=== PATIENT | female | born 1970 | race Caucasian/White ===

== ENCOUNTER → 2016-06-06 | Outpatient (CLI) | payer OTHER ==
--- NOTE | 2016-06-06 17:02 | MR ---
EXAMINATION TYPE: MR lumbar spine wo con DATE OF EXAM: 06/06/2016 4:38 PM COMPARISON: NONE HISTORY: Pain and numbness TECHNIQUE: T1 and T2 axial and sagittal images of the lumbar spine are submitted. FINDINGS: There is no abnormal signal seen within the visualized spinal cord or paraspinal soft tissu es. Subcentimeter area of signal within the right kidney likely related to simple cyst. At L1-2 there is no disc herniation or canal stenosis. No foraminal encroachment. At L2-3 there is no disc herniation or canal stenosis. No foraminal encroachment. At L3-4 there is mild disc desiccation. There is no disc herniation or canal stenosis. No foraminal e ncroachment. At L4-5 there is degenerative disc disease with broad-based central disc protrusion and mild effaceme nt of thecal sac with mild canal stenosis. Facet arthropathy and ligamentum flavum hypertrophy are se en with mild bilateral foraminal encroachment. Small annular tear. At L5-S1 there is no disc herniation or canal stenosis. Mild facet arthropathy. No foraminal encroach ment. IMPRESSION: 1. At L4-L5 there is an annular tear and broad-based central disc protrusion with mild effacement of thecal sac, mild canal stenosis and mild bilateral foraminal encroachment. 2. Facet arthropathy L5-S1.
== END | disposition home or self-care (01) ==
LOC: RADMRIMAIN 15:41
PROVIDERS: ATTEND Family Medicine
DX: M48.06 Spinal stenosis, lumbar region (principal); M51.26 Other intervertebral disc displacement, lumbar region; M46.86 Other specified inflammatory spondylopathies, lumbar region
CPT/HCPCS: 72148

== ENCOUNTER 2020-02-02 08:39 | Emergency (ER) | payer BC, OTHER ==
[2020-02-02 08:50] VITALS: RESP 18; TEMP 98.6
--- NOTE | 2020-02-02 09:07 | ED ---
General Adult HPI - General Chief complaint: Abdominal Pain Stated complaint: Abd pain Time Seen by Provider: 02/02/20 08:53 Source: patient Mode of arrival: ambulatory Limitations: no limitations - History of Present Illness Initial comments: Dictation was produced using [employer] dictation software. please excuse any grammatical, word or spelling errors. This patient was cared for during a federal and state declared state of emergency secondary to Covid 19 Chief Complaint: 49-year-old female presents with abdominal pain History of Present Illness: Is 49-year-old female she presents today with abdominal pain over the last year she's been having weight loss. She was scheduled to have a outpatient CT ordered by her primary care physician however she did not get it. Over the last 3 days she's been complaining of abdominal pain nausea and vomiting. She states that her vomiting only occurred on the first day of her symptoms. She states at that time as nonbilious not bloody. She complains of pain to the right abdomen in the upper and lower quadrants. It's worse with palpation. Patient states her abdominal pain is triggered by eating. She states the pain is instantaneous. She will go this morning had a bowel movement and reports that it was pale in color. She weighed 30 pounds heavier. She's been expressing unintentional weight loss since then. Denies any constitutional symptoms. The ROS documented in this emergency department record has been reviewed and confirmed by me. Those systems with pertinent positive or negative responses have been documented in the HPI. All other systems are other negative and/or noncontributory. PHYSICAL EXAM: General Impression: Alert and oriented x3, not in acute distress HEENT: Normocephalic atraumatic, extra-ocular movements intact, pupils equal and reactive to light bilaterally, mucous membranes moist. Cardiovascular: Heart regular rate and rhythm Chest: Able to complete full sentences, no retractions, no tachypnea Abdomen: abdomen soft, tenderness to the right abdomen worse in the upper versus lower quadrant, there is a positive Salmon's and there is pain at McBurney's point. Non-distended, no organomegaly, normal bowel sounds with auscultation the abdomen Musculoskeletal: Pulses present and equal in all extremities, no peripheral edema Motor: no focal deficits noted Neurological: CN II-XII grossly intact, no focal motor or sensory deficits noted Skin: Intact with no visualized rashes Psych: Normal affect and mood ED course: 49-year-old presents today with 3 days of abdominal pain. Vital signs upon arrival are within acceptable limits. Patient refusing analgesics. Laboratory evaluation obtained. CBC unremarkable. Cardiac panel is negative. Metabolic panel shows no acute processes. His lipase is slightly elevated at 362. Analysis is a dirty catch no concerns of UTI. Computed tomography scan of the abdomen and pelvis obtained showing no acute processes. Patient reevaluated bedside she is appears to be in stable medical issue. Patient was notified of the results of her labs and her CT imaging. Patient requests to be discharged. This point there is no life-threatening processes identified. Patient given outpatient referral to gastroenterology. She is given prescriptions for Protonix. There is obvious source of patient's symptoms. Patient does not have any high-risk features. - Related Data Home Medications Medication Instructions Recorded Confirmed Albuterol Sulfate [Proair Hfa] 2 puff INHALATION RT-Q4H PRN 12/09/13 02/02/20 Fluticasone/Salmeterol [Advair 1 puff INHALATION RT-HS 02/02/20 02/02/20 500-50 Diskus] Montelukast [Singulair] 10 mg PO HS 02/02/20 02/02/20 Previous Rx's Medication Instructions Recorded Pantoprazole [Protonix] 40 mg PO DAILY 20 Days #20 02/02/20 tablet. Allergies Allergy/AdvReac Type Severity Reaction Status Date / Time Milk Containing Products AdvReac Nausea & Verified 02/02/20 09:53 [Dairy] Vomiting & Diarrhea wheat AdvReac Nausea & Verified 02/02/20 09:53 Vomiting & Diarrhea Review of Systems ROS Statement: Those systems with pertinent positive or pertinent negative responses have been documented in the HPI. ROS Other: All systems not noted in ROS Statement are negative. Past Medical History Past Medical History: Asthma History of Any Multi-Drug Resistant Organisms: None Reported Past Surgical History: Heart Catheterization Past Psychological History: No Psychological Hx Reported Smoking Status: Current every day smoker Past Alcohol Use History: None Reported Past Drug Use History: None Reported General Exam Limitations: no limitations Course Vital Signs 02/02/20 08:47 Temperature 98.6 F Pulse Rate 55 L Respiratory 18 Rate Blood Pressure 130/76 O2 Sat by Pulse 97 Oximetry Medical Decision Making - Lab Data Result diagrams: 02/02/20 09:13 02/02/20 09:13 Lab Results 02/02/20 02/02/20 02/02/20 Range/Units 09:13 09:13 09:13 WBC 8.2 (3.8-10.6) k/uL RBC 4.54 (3.80-5.40) m/uL Hgb 14.0 (11.4-16.0) gm/dL Hct 41.7 (34.0-46.0) % MCV 91.8 (80.0-100.0) fL MCH 30.8 (25.0-35.0) pg MCHC 33.6 (31.0-37.0) g/dL RDW 12.1 (11.5-15.5) % Plt Count 254 (150-450) k/uL MPV 6.8 Neutrophils % 61 % Lymphocytes % 28 % Monocytes % 7 % Eosinophils % 2 % Basophils % 1 % Neutrophils # 5.0 (1.3-7.7) k/uL Lymphocytes # 2.3 (1.0-4.8) k/uL Monocytes # 0.5 (0-1.0) k/uL Eosinophils # 0.2 (0-0.7) k/uL Basophils # 0.1 (0-0.2) k/uL PT 10.1 (9.0-12.0) sec INR 1.0 (<1.2) APTT 26.6 (22.0-30.0) sec Sodium (137-145) mmol/L Potassium (3.5-5.1) mmol/L Chloride (98-107) mmol/L Carbon Dioxide (22-30) mmol/L Anion Gap mmol/L BUN (7-17) mg/dL Creatinine (0.52-1.04) mg/dL Est GFR (CKD-EPI)AfAm (>60 ml/min/1.73 sqM) Est GFR (CKD-EPI)NonAf (>60 ml/min/1.73 sqM) Glucose (74-99) mg/dL Calcium (8.4-10.2) mg/dL Total Bilirubin (0.2-1.3) mg/dL Conjugated Bilirubin (0.0-0.3) mg/dL Unconjugated Bilirubin (0.0-1.1) mg/dL Delta Bilirubin (0.0-0.2) mg/dL AST (14-36) U/L ALT (4-34) U/L Alkaline Phosphatase (38-126) U/L Total Protein (6.3-8.2) g/dL Albumin (3.5-5.0) g/dL Lipase (23-300) U/L Urine Color Yellow Urine Appearance Cloudy H (Clear) Urine pH 5.0 (5.0-8.0) Ur Specific [place] 1.027 (1.001-1.035) Urine Protein 1+ H (Negative) Urine Glucose (UA) Negative (Negative) Urine Ketones Trace H (Negative) Urine Blood Trace H (Negative) Urine Nitrite Negative (Negative) Urine Bilirubin Negative (Negative) Urine Urobilinogen <2.0 (<2.0) mg/dL Ur Leukocyte Esterase Moderate H (Negative) Urine RBC 9 H (0-5) /hpf Urine WBC 7 H (0-5) /hpf Ur Squamous Epith Cells 14 H (0-4) /hpf Urine Mucus Occasional H (None) /hpf 02/02/20 Range/Units 09:13 WBC (3.8-10.6) k/uL RBC (3.80-5.40) m/uL Hgb (11.4-16.0) gm/dL Hct (34.0-46.0) % MCV (80.0-100.0) fL MCH (25.0-35.0) pg MCHC (31.0-37.0) g/dL RDW (11.5-15.5) % Plt Count (150-450) k/uL MPV Neutrophils % % Lymphocytes % % Monocytes % % Eosinophils % % Basophils % % Neutrophils # (1.3-7.7) k/uL Lymphocytes # (1.0-4.8) k/uL Monocytes # (0-1.0) k/uL Eosinophils # (0-0.7) k/uL Basophils # (0-0.2) k/uL PT (9.0-12.0) sec INR (<1.2) APTT (22.0-30.0) sec Sodium 135 L (137-145) mmol/L Potassium 4.5 (3.5-5.1) mmol/L Chloride 102 (98-107) mmol/L Carbon Dioxide 26 (22-30) mmol/L Anion Gap 7 mmol/L BUN 15 (7-17) mg/dL Creatinine 0.58 (0.52-1.04) mg/dL Est GFR (CKD-EPI)AfAm >90 (>60 ml/min/1.73 sqM) Est GFR (CKD-EPI)NonAf >90 (>60 ml/min/1.73 sqM) Glucose 118 H (74-99) mg/dL Calcium 9.4 (8.4-10.2) mg/dL Total Bilirubin 0.7 (0.2-1.3) mg/dL Conjugated Bilirubin 0.0 (0.0-0.3) mg/dL Unconjugated Bilirubin 0.5 (0.0-1.1) mg/dL Delta Bilirubin 0.2 (0.0-0.2) mg/dL AST 31 (14-36) U/L ALT 20 (4-34) U/L Alkaline Phosphatase 49 (38-126) U/L Total Protein 7.1 (6.3-8.2) g/dL Albumin 4.3 (3.5-5.0) g/dL Lipase 362 H (23-300) U/L Urine Color Urine Appearance (Clear) Urine pH (5.0-8.0) Ur Specific [place] (1.001-1.035) Urine Protein (Negative) Urine Glucose (UA) (Negative) Urine Ketones (Negative) Urine Blood (Negative) Urine Nitrite (Negative) Urine Bilirubin (Negative) Urine Urobilinogen (<2.0) mg/dL Ur Leukocyte Esterase (Negative) Urine RBC (0-5) /hpf Urine WBC (0-5) /hpf Ur Squamous Epith Cells (0-4) /hpf Urine Mucus (None) /hpf Disposition Clinical Impression: Abdominal pain Disposition: HOME SELF-CARE Condition: Good Instructions (If sedation given, give patient instructions): Abdominal Pain (ED) Additional Instructions: Follow-up with GI doctor as referred. Please seek medical attention if he started to develop worsening symptoms especially if it involves fever, worsening pain or intractable nausea vomiting or diarrhea. Prescriptions: Pantoprazole [Protonix] 40 mg PO DAILY 20 Days #20 tablet.dr Is patient prescribed a controlled substance at d/c from ED?: No Referrals: Henry Ferreira MD [STAFF PHYSICIAN] - 1-2 days Time of Disposition: 11:39
[2020-02-02 09:27] LABS: Basophils # (A) 0.1 k/uL (0-0.2); Basophils % (A) 1 %; Eosinophils # (A) 0.2 k/uL (0-0.7); Eosinophils % (A) 2 %; HCT 41.7 % (34.0-46.0); Lymphocytes # (A) 2.3 k/uL (1.0-4.8); Lymphocytes % (A) 28 %; MCH 30.8 pg (25.0-35.0); MCHC 33.6 g/dL (31.0-37.0); MCV 91.8 fL (80.0-100.0); Mean Platelet Volume 6.8; Monocytes # (A) 0.5 k/uL (0-1.0); Monocytes % (A) 7 %; Neutrophils % (A) 61 %; Platelet Count 254 k/uL (150-450); RBC 4.54 m/uL (3.80-5.40); RDW 12.1 % (11.5-15.5); WBC 8.2 k/uL (3.8-10.6)
[2020-02-02 09:39] LABS: Partial Thromboplastin Time 26.6 sec (22.0-30.0); Prothrombin Time 10.1 sec (9.0-12.0)
[2020-02-02 09:40] LABS: ALT 20 U/L (4-34); African American GFR (CKD) >90 (>60 ml/min/1.73 sqM); Albumin 4.3 g/dL (3.5-5.0); Anion Gap 7 mmol/L; Bilirubin, Delta 0.2 mg/dL (0.0-0.2); Bilirubin,Unconjugated 0.5 mg/dL (0.0-1.1); Blood Urea Nitrogen 15 mg/dL (7-17); Calcium 9.4 mg/dL (8.4-10.2); Carbon Dioxide 26 mmol/L (22-30); Chloride 102 mmol/L (98-107); Glucose 118 mg/dL (74-99); Lipase 362 U/L (23-300); Non-African American GFR(CKD) >90 (>60 ml/min/1.73 sqM); Sodium 135 mmol/L (137-145); Total Bilirubin 0.7 mg/dL (0.2-1.3); Total Protein 7.1 g/dL (6.3-8.2)
[2020-02-02 09:43] LABS: Appearance,Urine Cloudy (Clear); Bilirubin,Urine Negative (Negative); Blood,Urine Trace (Negative); Color,Urine Yellow; Glucose,Urine (UA) Negative (Negative); Ketones,Urine Trace (Negative); Leukocyte Esterase,Urine Moderate (Negative); Mucus,Urine Occasional /hpf; Nitrite,Urine Negative (Negative); Protein,Urine 1+ (Negative); RBC,Urine 9 /hpf (0-5); Specific Gravity,Urine 1.027 (1.001-1.035); Squamous Epithelial Cell,Urine 14 /hpf (0-4); Urobilinogen,Urine <2.0 mg/dL (<2.0); WBC,Urine 7 /hpf (0-5)
[2020-02-02 10:13] LABS: AST 31 U/L (14-36); Alkaline Phosphatase 49 U/L (38-126); Potassium 4.5 mmol/L (3.5-5.1)
--- NOTE | 2020-02-02 10:25 | CT ---
EXAMINATION TYPE: CT abdomen pelvis w con DATE OF EXAM: 02/02/2020 COMPARISON: HISTORY: Abd pain CT DLP: 449.4 mGycm CONTRAST: CT scan of the abdomen and pelvis is performed without Oral Contrast and with IV Contrast, patient in jected with 100 mL of Isovue 300. FINDINGS: LUNG BASES-: No visible nodule. No infiltrate. LIVER/GB: No calcified gallstones. No space occupying hepatic lesion. Biliary tree is of normal ca liber. PANCREAS: No inflammation. No distinct mass. SPLEEN: No splenic enlargement. No lesion seen. ADRENALS: No nodule. No thickening. KIDNEYS/BLADDER: No hydronephrosis. No nephrolithiasis. No distinct renal mass. Urinary bladder g rossly unremarkable. BOWEL: Normal appendix. Normal bowel caliber. No inflammation. GENITAL ORGANS: No gross abnormality. LYMPH NODES: No greater than 1cm abdominal or pelvic lymph nodes are appreciated. AORTA: No significant abnormality. OSSEOUS STRUCTURES: No significant abnormality is seen. OTHER: No significant additional abnormality is seen. IMPRESSION: 1. No distinct abnormality appreciated this time.
[2020-02-02] MEDS ORDERED: MAG HYDROX/AL HYDROX/SIMETH 30 ML, HYOSCYAMINE ELIXIR 10 ML, LIDOCAINE VISCOUS 2% 10 ML PO STA ×3 (10:30)
[2020-02-02 12:46] VITALS: BP 98/64; PULSE 75
== END 2020-02-02 12:41 | disposition home or self-care (01) ==
LOC: EC 08:39
DX: R10.9 Unspecified abdominal pain (principal); R11.2 Nausea with vomiting, unspecified; R63.4 Abnormal weight loss; R74.8 Abnormal levels of other serum enzymes; J45.909 Unspecified asthma, uncomplicated; F17.200 Nicotine dependence, unspecified, uncomplicated; Z79.51 Long term (current) use of inhaled steroids
CPT/HCPCS: 36415; 80053; 82248; 83690; 85025; 85610; 85730; 81001; 74177; 99284; Q9967

== ENCOUNTER → 2022-01-10 | Outpatient (CLI) | payer BC ==
--- NOTE | 2022-01-10 10:58 | MM ---
Reason for Exam: Screening (asymptomatic). Last mammogram was performed 7 year(s) and 8 month(s) ago. Patient History: Menarche at age 10. First Full-Term at age 16. Paternal aunt had breast cancer. Maternal aunt had breast cancer. Risk Values: Shaunna 5 year model risk: 0.8%. NCI Lifetime model risk: 6.2%. Prior Study Comparison: 03/10/2013 Bilateral Screening Mammogram, [facility]. 03/19/2013 Left Diagnostic Mammogram, [facility]. 06/03/2014 Bilateral Diagnostic Mammogram, [facility]. Tissue Density: The breast tissue is heterogeneously dense. This may lower the sensitivity of mammography. Findings: Analyzed By CAD. There is dermal based lesion inferiorly in the left breast redemonstrated. Occasional scattered benign-appearing round calcification throughout the bilateral breasts are redemonstrated. Focal asymmetry posterior depth upper aspect right breast more prominent from prior (summation density versus true lesion), no corresponding abnormality clearly seen on CC view. Overall Assessment: Incomplete: need additional imaging evaluation, BI-RAD 0 Management: Special View Mammogram of the right breast. Return for additional views right breast. Electronically signed and approved by: Herman Marley M.D.
== END | disposition home or self-care (01) ==
LOC: RADMAMWWP 07:22
PROVIDERS: ATTEND Family Medicine
DX: Z12.31 Encounter for screening mammogram for malignant neoplasm of breast (principal); Z80.3 Family history of malignant neoplasm of breast
CPT/HCPCS: 77067

== ENCOUNTER 2024-05-05 17:08 | Emergency (ER) | payer BC, MEDICAID ==
[2024-05-05 17:32] VITALS: TEMP 98.2
[2024-05-05] MEDS: SODIUM CHLORIDE 0.9% 1,000 ML IV STA (18:25)
[2024-05-05] MEDS: KETOROLAC 15 MG/ML 1 ML VIAL IVP STA (18:28)
[2024-05-05] MEDS: diphenhydrAMINE 50 MG/ML 1 ML VIAL IVP STA (18:29)
[2024-05-05] MEDS: PROCHLORPERAZINE INJ 10 MG/2 ML VIAL IVP STA (18:30)
[2024-05-05] MEDS: DEXAMETHASONE SOD PHOSPHATE 10 MG/ML 1 ML VIAL IVP STA (18:30)
--- NOTE | 2024-05-05 18:48 | ED ---
Headache HPI - General Chief Complaint: Headache Stated Complaint: extended headache Time Seen by Provider: 05/05/24 17:51 Source: patient, RN notes reviewed Mode of arrival: ambulatory Limitations: no limitations - History of Present Illness Initial Comments: This is a 53-year-old female who presents to the emergency department for a fall. Patient slipped and fell on the ice 3 weeks ago and hit the back left side of her head. Does not believe that she lost consciousness, but is not sure. She is supposed to be on blood thinners, but is not on them currently and was not on them at that time. States that she continues to have headaches since the fall. Not currently taking anything for the headache. States that she took ibuprofen at one point but then ran out. States that it did help to some extent. She does report occasional visual changes and nausea associated with this. MD Complaint: headache - Related Data Home Medications Medication Instructions Recorded Confirmed Albuterol Sulfate [Proair Hfa] 2 puff INHALATION RT-Q4H PRN 12/09/13 02/02/20 Fluticasone Propion/Salmeterol 1 puff INHALATION RT-HS 02/02/20 02/02/20 [Advair 500-50 Diskus] Montelukast [Singulair] 10 mg PO HS 02/02/20 02/02/20 Previous Rx's Medication Instructions Recorded Pantoprazole [Protonix] 40 mg PO DAILY 20 Days #20 02/02/20 tablet.dr Montanez [Motrin] 800 mg PO Q8H PRN #30 tab 05/05/24 Allergies Allergy/AdvReac Type Severity Reaction Status Date / Time Milk Containing Products AdvReac Nausea & Verified 02/02/20 09:53 (Dairy) Vomiting & [Dairy] Diarrhea wheat AdvReac Nausea & Verified 02/02/20 09:53 Vomiting & Diarrhea Review of Systems ROS Statement: Those systems with pertinent positive or pertinent negative responses have been documented in the HPI. ROS Other: All systems not noted in ROS Statement are negative. Past Medical History Past Medical History: Asthma, COPD History of Any Multi-Drug Resistant Organisms: None Reported Past Surgical History: Heart Catheterization Past Psychological History: No Psychological Hx Reported Smoking Status: Current every day smoker Past Alcohol Use History: None Reported Past Drug Use History: None Reported General Exam Limitations: no limitations General appearance: alert, in no apparent distress Head exam: Present: atraumatic, normocephalic, normal inspection Eye exam: Present: normal appearance, PERRL, EOMI. Absent: scleral icterus, conjunctival injection, periorbital swelling Respiratory exam: Present: normal lung sounds bilaterally. Absent: respiratory distress, wheezes, rales, rhonchi, stridor Cardiovascular Exam: Present: regular rate, normal rhythm Neurological exam: Present: alert, oriented X3, CN II-XII intact Psychiatric exam: Present: normal affect, normal mood Skin exam: Present: warm, dry, intact, normal color. Absent: rash Course Vital Signs 05/05/24 05/05/24 17:29 21:21 Temperature 98.2 F Pulse Rate 100 85 Respiratory 20 16 Rate Blood Pressure 107/59 113/71 O2 Sat by Pulse 93 L 95 Oximetry Medical Decision Making - Medical Decision Making This is a 53 year old female who presents to the emergency department for a headache. Was pt. sent in by a medical professional or institution? @ -No Did you speak to anyone other than the patient for history? @ -No Did you review nursing and triage notes? @ -Yes, and I agree, it is accurate with regards to the patient's symptoms. Were old charts reviewed? @ -No Differential Diagnosis? @ -Differential Headache: Migraine, tension, cluster, carbon monoxide, central venous thrombosis, pension karma temporal arteritis, acute closure glaucoma, intercranial hemorrhage, mastoiditis, sinusitis, head injury, this is not meant to be an all-inclusive list. EKG interpreted by me (3pts min.)? @ -Not obtained X-rays interpreted by me (1pt min.)? @ -Not obtained CT interpreted by me (1pt min.)? @ -Computed tomography scan of the brain and c-spine obtained. My interpretation identifies no evidence of an acute intracranial hemorrhage, skull fracture, or cervical spine fracture. U/S interpreted by me (1pt. min.)? @ -Not obtained What testing was considered but not performed? (CT, X-rays, U/S, labs)? Why? @ -None What meds were considered but not given? Why? @ -None Did you discuss the management of the patient with other professionals? @ -No Did you reconcile home meds? @ -No Was smoking cessation discussed for >3mins.? @ -No Was critical care preformed (if so, how long)? @ -No Were there social determinants of health that impacted care today? How? (Homelessness, low income, unemployed, alcoholism, drug addiction, transportation, low edu. Level, literacy, decrease access to med. care, fpc, rehab)? @ -No Was there de-escalation of care discussed even if they declined? (Discuss DNR or withdrawal of care, Hospice)? @ -No What co-morbidities impacted this encounter? (DM, HTN, Smoking, COPD, CAD, Cancer, CVA, Hep., AIDS, mental health diagnosis, sleep apnea, morbid obesity)? @ -None Was patient admitted / discharged? @ -Discharged. Given the persistent headaches following the head injury, CT scan of the brain and C-spine were obtained. No acute intracranial process or signs of a cervical spine fracture were identified. However, nonspecific lung nodules were identified. Her symptoms were controlled in the emergency department. However, she was advised of these lung nodules and the need to follow-up with her PCP for repeat imaging. Prescription for ibuprofen provided for any additional headaches and she was discharged home in stable condition. Case discussed with ED attending Dr. Briggs. Return precautions reviewed in depth, the patient is instructed to return to the emergency department with any new, worsening, or concerning symptoms. Patient verbalized understanding. Undiagnosed new problem with uncertain prognosis? @ -None Drug Therapy requiring intensive monitoring for toxicity (Heparin, Nitro, Insulin, Cardizem)? @ -None Were any procedures done? @ -None Diagnosis/symptom? @ -Headache, fall, head injury Acute, or Chronic, or Acute on Chronic? @ -Acute Uncomplicated (without systemic symptoms) or Complicated (systemic symptoms)? @ -Uncomplicated Side effects of treatment? @ -None Exacerbation, Progression, or Severe Exacerbation] @ -Not applicable Poses a threat to life or bodily function? @ -No - Radiology Data Radiology results: report reviewed, image reviewed Disposition Clinical Impression: Headache, Fall, Head injury Disposition: HOME SELF-CARE Condition: Stable Instructions (If sedation given, give patient instructions): Acute Headache (ED) Additional Instructions: Return to the emergency department with any new, worsening, or concerning symptoms. Alternate with ibuprofen and Tylenol as needed for any additional headaches. The CT scan did see some lung nodules. Make sure you follow-up with your primary care provider for a repeat CT scan of the chest. Follow up with your primary care provider in 1-2 days. Prescriptions: Ibuprofen [Motrin] 800 mg PO Q8H PRN #30 tab PRN Reason: Pain Is patient prescribed a controlled substance at d/c from ED?: No Referrals: Greg Bustillo DO [Primary Care Provider] - 1-2 days Time of Disposition: 21:12
--- NOTE | 2024-05-05 21:05 | CT ---
EXAMINATION TYPE: CT brain cspine wo con CT DLP: 1295 mGycm, Automated exposure control for dose reduction was used. DATE OF EXAM: 05/05/2024 8:03 PM COMPARISON: CT chest 05/01/2022. CLINICAL INDICATION:Female, 53 years old with history of Fall; fell on the ice 3 weeks ago/ neck and head pain TECHNIQUE: Brain: Multiple axial CT images of the brain were obtained without IV contrast. Cspine: Axial CT images from the skull base to the inferior aspect of T2 we obtained without intraven ous contrast. Coronal and sagittal reformatted images were also reviewed. . FINDINGS: Brain: Extra-axial spaces: No abnormal extra-axial fluid collections. Ventricular system: Within normal limits Cerebral parenchyma: No acute intraparenchymal hemorrhage or mass effect. The walker-white junction is well differentiated. Cerebellum: Unremarkable. Mass effect: No evidence of midline shift. Intracranial vasculature: Atherosclerotic calcifications of the intracranial vessels. Soft tissues: Normal. Calvarium/osseous structures: No depressed skull fracture. Paranasal sinuses and mastoid air cells: Clear. Visualized orbits: Orbital contents are intact. Cervical spine: Fracture: No acute fracture. Osseous structures: Mild multilevel degenerative changes Vertebral alignment: Within normal limits. Spinal canal/Neural Foramina: No evidence of significant spinal canal narrowing. No evidence for sign ificant neural foraminal stenosis. Neck soft tissues: Prevertebral soft tissues are within normal limits. Other: The airway is patent. There is a somewhat spiculated nodular focus measuring 9 mm in the left lung apex with an adjacent solid nodule measuring at least 6 mm. These were not present on the CT shakeel st in reference. IMPRESSION: 1. No acute intracranial process. 2. No evidence of acute cervical spine fracture. 3. Subcentimeter nodules are noted in the left lung apex new from the CT chest in reference. Dedicate d CT chest for further characterization is recommended however these findings should also be further characterized with a [address] chest follow-up and/or correlation with outside imaging for stability . [facility], , 05/05/2024 9:03 PM
[2024-05-05] MEDS: IBUPROFEN 600 MG STARTER PACK 4 TAB BTL PO STA (21:16)
[2024-05-05 21:48] VITALS: BP 113/71; PULSE 85; RESP 16
== END 2024-05-05 21:21 | disposition home or self-care (01) ==
LOC: EC 17:08
DX: S09.90XA Unspecified injury of head, initial encounter (principal); F17.200 Nicotine dependence, unspecified, uncomplicated; Z91.011 Allergy to milk products; Z91.048 Other nonmedicinal substance allergy status; W00.0XXA Fall on same level due to ice and snow, initial encounter
CPT/HCPCS: 72125; 70450; 99284; 96374; 96375 ×3; 96361 ×3; J1200; J0780; J1100; J1885

== ENCOUNTER → 2024-05-08 | Outpatient (CLI) | payer MEDICAID ==
--- NOTE | 2024-05-08 15:35 | CT ---
CT thorax with contrast HISTORY: Abnormal lung finding on chest x-ray. COMPARISON: Chest radiograph dated 02/19/[address] low dose lung dated 05/01/2022 TECHNIQUE: Multiple axial images were obtained through the thorax following IV contrast administratio n. FINDINGS: There are moderate emphysematous changes. There are 4 new ill-defined parenchymal densities in the left upper lobe largest of which is approxim ately 10 mm mm. The second largest is approximately 8 mm. Given that these are new densities compared to the prior study, neoplasm cannot be excluded and PET scan or follow-up CT thorax in 3 months is recommended.. The right lung is clear. There is no airspace consolidation. There is no pleural effusion or pneumothorax. The great vessels and chest are normal and there is a mediastinal, hilar or axillary adenopathy. Limited scanning through the upper abdomen reveals no gross abnormality. There are no focal osseous lesions. IMPRESSION: 1. 4 new ill-defined densities in the left upper lobe suspicious for neoplasm and either PET scan or 3 month follow-up CT is recommended for further evaluation. 2. Moderate emphysematous changes. 3. No acute cardiopulmonary disease. [facility], , 05/08/2024 3:33 PM
== END | disposition home or self-care (01) ==
LOC: RADCTMAIN 14:52
PROVIDERS: ATTEND Family Medicine
DX: J43.9 Emphysema, unspecified (principal); R91.8 Other nonspecific abnormal finding of lung field; J98.4 Other disorders of lung
CPT/HCPCS: 71260; Q9967

== ENCOUNTER → 2024-08-20 | Outpatient (CLI) | payer MEDICAID ==
--- NOTE | 2024-08-20 16:00 | CT ---
CT thorax with contrast HISTORY: Abnormal lung finding. COMPARISON: 05/08/2024 TECHNIQUE: Multiple axial images are obtained through the thorax following IV contrast. FINDINGS: There are moderate emphysematous changes. There are 3 left upper lobe pulmonary nodules one of which has grown from 6.4 mm to 9.9 mm. A second has grown from 8.2 mm to 9.7 mm the third is relatively stable at 7 mm. Neoplasm is not excluded and PET scan is recommended for further evaluation. Great vessels chest are normal and there is no mediastinal, hilar or axillary adenopathy. There is no airspace consolidation. There is no pleural effusion or pneumothorax. Limited scanning through the upper abdomen reveals no gross abnormality. There are no focal osseous lesions. IMPRESSION: Interval growth in left upper lobe pulmonary nodules as described above. PET scan is recommended. Mal ignancy is not excluded. [facility], Workstation: ROD 08/20/2024 3:57 PM
== END | disposition home or self-care (01) ==
LOC: RADCTMAIN 15:05
PROVIDERS: ATTEND Internal Medicine
DX: R91.8 Other nonspecific abnormal finding of lung field (principal); J43.9 Emphysema, unspecified
CPT/HCPCS: 71260; Q9967

== ENCOUNTER → 2024-09-04 | Outpatient (CLI) | payer MEDICAID ==
--- NOTE | 2024-09-06 08:23 | PE ---
EXAMINATION TYPE: PET CT fusion skull to thigh DATE OF EXAM: 09/04/2024 CLINICAL INDICATION:Female, 54 years old with history of R91.8 OTHER NONSPECIFIC ABNORMAL FINDING OF LUNG F; TECHNIQUE: Following the intravenous administration of 10.6 mCi of F-18 FDG, whole body images are performed from the skull base to the Mid thigh. Images are reviewed on the computer in the coronal, axial, and sagittal planes. Reconstructed rotating images are created on independent workstation and reviewed on the computer. A non-contrast CT is performed in conjunction with the PET scan. Glucose level 93 mg/dL CT DLP: 440.8 mGycm, Automated exposure control for dose reduction was used. COMPARISON: CT 08/20/2024., PET/CT None, MRI: None FINDINGS: Mediastinal SUV mean is 2.2. Hepatic parenchyma SUV mean is 2.6. SKULL BASE AND NECK: CHEST, MEDIASTINUM, AND HILAR REGION: Suspicious uptake identified; examples include: Left upper lobe nodule measuring 5 mm Max SUV 2.4. ABDOMEN AND PELVIS: No suspicious radiotracer activity. MUSCULOSKELETAL STRUCTURES: No suspicious radiotracer activity. OTHER CT: Mild centrilobular and paraseptal emphysema changes. Mild to moderate coronary artery ather osclerosis. IMPRESSION: Left upper lobe pulmonary nodule with mild uptake concerning for early malignancy. No evidence for me tastatic disease. [facility], , 09/06/2024 8:21 AM
== END | disposition home or self-care (01) ==
LOC: RADPETMAIN 08:39
PROVIDERS: ATTEND Internal Medicine
DX: R91.8 Other nonspecific abnormal finding of lung field (principal); R91.1 Solitary pulmonary nodule
CPT/HCPCS: 78815; A9552